=== PATIENT | male | born 1985 | race Caucasian/White ===

== ENCOUNTER 2022-06-26 08:40 | Emergency (ER) | payer OTHER ==
[2022-06-26 09:09] VITALS: BP 128/74
--- NOTE | 2022-06-26 09:53 | ED Physician Documentation ---
PD HPI BACK PAIN - Stated complaint Stated Complaint: BACK PAIN - Chief complaint Chief Complaint: Back Pain - History obtained from History obtained from: Patient - Additional information Additional information: Pt is a 37yo M presenting for evaluation of lower back pain which radiates to his right leg for several weeks. Pt denies any know injuries or trauma. 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 His PCM is supposed to place an MRI order. He has been using ibuprofen and flexeril with improvement. He is scheduled to [facility] in 1 month and is presenting to ED for MRI. Denies fever, injections in back, IVDA, loss of bowel/bladder control. Review of Systems Constitutional: denies: Fever Cardiac: denies: Chest pain / pressure Respiratory: denies: Dyspnea GI: reports: Abdominal Pain, Vomiting : reports: Incontinent Musculoskeletal: reports: Back pain Neurologic: reports: Headache PD PAST MEDICAL HISTORY - Present Medications Home Medications: Ambulatory Orders Medication Instructions Recorded Confirmed Cyclobenzaprine [Flexeril] 10 mg PO TID PRN 06/26/22 06/26/22 predniSONE [Deltasone] 20 mg PO [id number] #21 tab 06/26/22 - Allergies Allergies/Adverse Reactions: Allergies Allergy/AdvReac Type Severity Reaction Status Date / Time No Known Drug Allergies Allergy Verified 06/26/22 09:09 PD ED PE NORMAL - General General: Alert and oriented X 3, No acute distress, Well developed/nourished - HEENT HEENT: Atraumatic - Neck Neck: Supple, no meningeal sign - Cardiac Cardiac: RRR - Respiratory Respiratory: No respiratory distress, Clear bilaterally - Abdomen Abdomen: Soft, Non tender - Back Back: No spinal TTP - Derm Derm: Warm and dry - Extremities Extremities: Other (+ straight leg raise on R; pedal pulses intact) - Neuro Neuro: No motor deficit, No sensory deficit Results - Vitals Vitals: Vital Signs - 24 hr 06/26/22 09:02 Temperature 36 C L Heart Rate 62 Respiratory 14 Rate Blood Pressure 128/74 O2 Saturation 98 Oxygen O2 Source Room air PD MEDICAL DECISION MAKING - ED course ED course: Pt with low back pain radiating to R leg. Able to ambulate with no red flag signs/symptoms. Neurovascularly intact. No indication for emergent MRI today which I discussed with patient. Encouraged close outpatient follow up. Offered pt trial of steroid taper which he is agreeable to . Counseled on concerning symptoms to return for. Departure - Departure Disposition: 01 Home, Self Care Clinical Impression: Radicular low back pain Condition: Stable Instructions: Lumbar Radiculopathy Follow-Up: [facility] [Provider Group] Prescriptions: predniSONE [Deltasone] 20 mg PO [id number] #21 tab Comments: I am concerned that your symptoms are related to a pinched nerve from your lower back. I do agree that you need an MRI but I do not have an indication to order one through the emergency department today and we also do not have MRI services available today.[facility] would [facility] on Monday to make sure that your referral has gone through given your timeline before you move. A tapered course of steroids may also help with the irritation and inflammation that you are experiencing and I have sent a prescription for prednisone to [facility] in [place]. If you have worsening symptoms such as loss of bowel or bladder control then please return to the emergency department. Discharge Date/Time: 06/26/22 10:24
== END 2022-06-26 10:24 | disposition home or self-care (01) ==
LOC: ED 08:40
DX: M54.16 Radiculopathy, lumbar region (principal); M54.50 Low back pain, unspecified; R51.9 Headache, unspecified
CPT/HCPCS: 99282

== ENCOUNTER 2022-07-06 13:30 | Outpatient (CLI) | payer OTHER ==
--- NOTE | 2022-07-07 11:00 | MRI Report ---
PROCEDURE: LUMBAR SPINE WO INDICATIONS: LOW BACK PAIN TECHNIQUE: Noncontrast sagittal T1 spin echo and T2 fast echo, sagittal STIR, axial T1 and T2 fast spin echo thr ough the lumbar spine. In cases with scoliosis, additional coronal T2 fast spin echo may be performe d. COMPARISON: None. FINDINGS: Image quality: Excellent. Alignment and Curvature: There is normal bony alignment. Bone Marrow: Marrow is of normal overall signal. No acute vertebral body compression fractures. Spinal Cord: Conus medullaris terminates at the L1 level. Visualized cord demonstrates normal signa l and size. Paraspinous Soft Tissues: No paravertebral masses. T12-L1: No disc bulge. The foramina and central canal are patent. L1-L2: No disc bulge. The foramina and central canal are patent. L2-L3: No disc bulge. The foramina and central canal are patent. L3-L4: No disc bulge. The foramina and central canal are patent. L4-L5: The disc is desiccated with a midline posterior annular tear and small caudal protrusion. Di sc bulge causes mild bilateral foraminal stenosis. No central canal stenosis. L5-S1: The disc is desiccated with a diffuse bulge. A right foraminal protrusion causes moderate ri ght subarticular stenosis. The left foramina is patent. The central canal is patent. IMPRESSION: Degenerative disc disease at L4-5 and L5-S1 as detailed above. Reviewed by: Daniele Dejesus on 07/07/2022 10:58 AM PST Approved by: Daniele Dejesus on 07/07/2022 10:58 AM PST Station ID: [id number]
== END 2022-07-06 13:31 | disposition home or self-care (01) ==
LOC: DI 13:30
DX: M51.36 Other intervertebral disc degeneration, lumbar region (principal); M48.061 Spinal stenosis, lumbar region without neurogenic claudication; M51.37 Other intervertebral disc degeneration, lumbosacral region; M48.07 Spinal stenosis, lumbosacral region